=== PATIENT | male | born 2000 | race Caucasian/White ===

== ENCOUNTER 2024-12-23 09:27 | Outpatient (REF) | payer OTHER, SELFPAY ==
--- NOTE | ~2024-12-23 | MR_ITS ---
CLINICAL HISTORY: PAIN MR left femur without gadolinium Comparison: None Findings: Periosteal edema extends along the medial cortex of the left femoral mid-diaphysis at the insertions of the adductor longus and brevis. Minimal subjacent intracortical signal abnormality. No evidence of stress fracture. Imaged structures about the left hip are intact. 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 This document has been electronically signed by: Delvis Wong DO on 12/23/2024 11:43:20
== END 2024-12-23 09:28 | disposition home or self-care (01) ==
LOC: HO.MRI 09:27
PROVIDERS: Visit Provider Family Medicine
DX: M79.605 Pain in left leg (principal)
CPT/HCPCS: 73718

== ENCOUNTER → 2024-12-23 09:30 | Outpatient (BNV) | payer OTHER, SELFPAY | PROVIDERS: Visit Provider Radiology Diagnostic Radiology | DX: S76.212A Strain of adductor muscle, fascia and tendon of left thigh, initial encounter (principal) | CPT/HCPCS: 73718 ==